=== PATIENT | female | born 1980 | race Caucasian/White ===

== ENCOUNTER → 2017-03-20 17:15 | Outpatient (CLI) | payer OTHER, SELFPAY ==
--- NOTE | 2017-03-20 | IMM_PTH ---
PATIENT: KOLE DAWSON LOC: [facility] U#:[id number] AGE/SX: 44/F ROOM: RE03/20/[address]: Dr. Jose Tanner MD : 1980 BED: DIS: SPEC #: [id number] RECD: 03/24/17 13:08 STATUS: RANJEET REGordon #: [id number] OBINNA: 03/20/17 00:[address]: Jose Tanner DEPT: IMMUNOHISTOCHEMISTRY RECD BY: Taylor Diaz ENTERED: 03/24/17 13:08 SP TYPE: IMMUNO OTHR DR: No Primary Care Phys Tissues: Endocervical Procedures: p16 (initial) KI-67 (add) PHYSICIAN & INSTITUTION [place] [address] SPECIMEN INFORMATION: Tissue Source: [facility] Clinical Info: [facility] Specimen Number: [id number] CPT code: 17773, 32875 METHODOLOGY: Deparaffinized sections of prefer/formalin-fixed tissue or PAP/DQ stained slides are incubated with monoclonal/polyclonal antibodies/oligonucleotide probes. Localization is made via biotin free immunoperoxidase method. Appropriate controls are performed and reacted as expected. Results on target cell population are indicated in the following table: RESULTS: ANTIBODY / CLONE RESULT P16 (E6H4) positive, focal, patchy Ki-67 (30-9) positive, low These tests were developed and their performance characteristics determined by [facility]. They may not have been cleared or approved by the U.S. Food and Drug Administration. The FDA has determined that such clearance or approval is not necessary. INTERPRETATION: ECC: Focal HPV noted. AM:sylvia 03/25/17
--- NOTE | 2017-03-20 15:30 | ECC_PTH ---
PATIENT: KOLE DAWSON LOC: [facility] U#:[id number] AGE/SX: 44/F ROOM: RE03/20/[address]: Dr. Jose Tanner MD : 1980 BED: DIS: SPEC #: [id number] RECD: 03/20/17 16:58 STATUS: GLADYSSharon PALOMARES #: [id number] OBINNA: 03/20/17 15:[address]: Jose Tanner DEPT: SURGICAL PATHOLOGY RECD BY: Taylor Kumar ENTERED: 03/21/17 10:53 SP TYPE: ZACH HOLMAN DR: Tahira Primary Care Phys Tissues: Endocervical Procedures: Surgery Specimen Level IV HEADER OPERATION: Colposcopy PRE-OP DIAGNOSIS: LGSIL pap 02/27/17 TISSUE SUBMITTED: ZACH MICROSCOPIC DIAGNOSIS Endocervix, curettings: Fragments of benign endocervix. Detached squamous epithelial cells with changes consistent with HPV cytopathic effect. AM:sylvia 03/24/17 COMMENT Immunohistochemistry ([id number]) for surrogate HPV marker (p16) will be reported separately. MICROSCOPIC DESCRIPTION Slides are reviewed. GROSS DESCRIPTION Received in fixative is one container labeled with the patient's name and designated ECC. The specimen consists of multiple fragments of hemorrhagic mucoid tissue that in aggregate measure 1.5 x 1.5 x 0.2 cm. The specimen is totally submitted in one cassette. / SJ:rg 03/21/17 TC:5 CPT: 08113
== END ==
PROVIDERS: Visit Provider Obstetrics & Gynecology
DX: R87.612 Low grade squamous intraepithelial lesion on cytologic smear of cervix (LGSIL) (principal)
CPT/HCPCS: 88305; 88341; 88342

== ENCOUNTER → 2018-01-15 15:19 | Outpatient (CLI) | payer OTHER, SELFPAY ==
[2016-10-16 10:53] VITALS: BMI 31.1
[2018-01-15 16:16] LABS: Hematocrit 42.7 % (37-47); Hemoglobin 14.2 g/dl (12.0-15.0); Mean Corp Hgb Conc 33.3 g/gl (32-36); Mean Corpuscular Volume 87.3 fL (81-99); Mean Platelet Vol. 10.4 fl (6.2-12.0); Platelet Count 295 K/mm3 (150-450); RBC Distribution Width CV 13.5 % (11.6-14.6); RBC Distribution Width SD 42.3 fl (35.1-43.9); Red Blood Count 4.89 M/mm3 (4.2-5.4); White Blood Count 7.8 K/mm3 (4.4-11.0)
[2018-01-15 16:17] LABS: Scan Indicated on CBC? Y/N NO
[2018-01-15 16:29] LABS: Free T3 2.8 pg/mL (2.18-3.98); T4 Free Direct 1.04 ng/dL (0.76-1.46); Thyroid Stim Hormone (TSH) 2.14 uIU/mL (0.358-3.74)
[2018-01-20 10:03] LABS: HPV Reflexed? NOT INDICATED
--- OUTSIDE RECORDS SUMMARY | 2018-03-12 21:34 | XMS RPT_ITS ---
:1980 Author Organization [facility] Care Team Providers Name Role Phone Jose Tanner Attending Unavailable Primay Care Physicia, No Primary Care Unavailable SealJose quintana Attending Unavailable Primay Care Physicia, No Primary Care Unavailable SealJose quintana Referring Unavailable SealsJose Attending Unavailable Primay Care Physicia, No Primary Care Unavailable PROBLEMS PROBLEMS DATE TYPE CONDITION / CODE ATTENDING STATUS SOURCE 02/28/2017 Unknown Z12.4 - Jose Tanner Active [place] Encounter for Community screening for Hospital malignant Repository neoplasm of cervix / Z12.4(ICD-10) PROCEDURES PROCEDURES No Procedure Records FoundRESULTS RESULTS CBC-COMPLETE BLOOD CNT Collected: 01/15/2018 Status: F Source: [place] NO DIFF [facility] TYPE CODE TESTS RESULT OUT OF RANGE REFERENCE UNITS LAB L100.1000 4.4-11.0 K/mm3 Normal WBC 7.8 LAB L100.1200 4.2-5.4 M/mm3 Normal RBC 4.89 LAB L100.1300 12.0-15.0 g/dl Normal HGB 14.2 LAB L100.1400 37-47 % Normal HCT 42.7 LAB L100.1500 81-99 fL Normal MCV 87.3 LAB L100.1600 27.0-32.0 pg Normal MCH 29.0 LAB L100.1700 32-36 g/gl Normal MCHC 33.3 LAB L100.1810 11.6-14.6 % Normal RDW CV 13.5 LAB L100.1820 35.1-43.9 fl Normal RDW SD 42.3 LAB L100.1900 150-450 K/mm3 Normal PLT 295 LAB L100.2000 6.2-12.0 fl Normal MPV 10.4 Performed By: #### L100.0500 #### [facility] [address] [place], [place], [id number] FREE T3 Collected: 01/15/2018 Status: F Source: [place] 3:20 PM [facility] REPOSITORY TYPE CODE TESTS RESULT OUT OF RANGE REFERENCE UNITS LAB L501.73714 2.18-3.98 pg/mL Normal FREE T3 2.8 Performed By: #### L501.75710, L501.9520, L506.0400 #### [facility] [address] [place], [place], [address] THYROID STIM HORMONE Collected: 01/15/2018 Status: F Source: [place] (TSH) 3:20 PM [facility] REPOSITORY TYPE CODE TESTS RESULT OUT OF RANGE REFERENCE UNITS LAB L501.9520 0.358-3.74 uIU/mL Normal TSH 2.14 Performed By: #### L501.89684, L501.9520, L506.0400 #### [facility] [address] [place], [address] T4 FREE DIRECT Collected: 01/15/2018 Status: F Source: [place] 3:20 PM [facility] REPOSITORY TYPE CODE TESTS RESULT OUT OF RANGE REFERENCE UNITS LAB L506.0400 0.76-1.46 ng/dL Normal T4 FREE 1.04 DIRECT Performed By: #### L501.95344, L501.9520, L506.0400 #### [facility] [address] [place], [address] PAP I-G W/RFX HRHPV Collected: 01/15/2018 Status: F Source: [place] 3:10 PM [facility] REPOSITORY Order Comment: CYTOLOGY INFORMATION: - CLINICAL INFORMATION: - DATE LMP/MENOPAUSE: 12/18/17 LMP - COLLECTION VIAL: Thin Prep Vial - FUSELAGE FRAMER SOURCE: CERVICAL/ENDOCERVICAL - COLLECTION TECHNIQUE: BRUSH/SPATULA Specimen Comment: [id number] Specimen Comment: Source.............Cervix;Endocervix Specimen Comment: LMP / Prev Treat...OAS=[id number] Specimen Comment: No. of containers..01 ThinPrep Vial TYPE CODE TESTS RESULT OUT OF RANGE REFERENCE UNITS LAB L7400.0800 . Normal DIAGN Comment Result Comment: NEGATIVE FOR INTRAEPITHELIAL LESION AND MALIGNANCY. LAB L7400.0900 . Normal ADEQ Comment Result Comment: Satisfactory for evaluation. Endocervical and/or squamous metaplastic cells (endocervical component) are present. LAB L7400.1400 . Normal PERFORM Comment Result Comment: Teresita Jack, Sales Development Executive (ASCP) LAB L7400.2575 . Normal TEST METHOD Comment Result Comment: This liquid based ThinPrep(R) pap test was screened with the use of an image guided system. LAB L7400.2600 . Normal . COMM LAB L7400.2700 . Normal PAPSMR Comment Result Comment: The Pap smear is a screening test designed to aid in the detection of premalignant and malignant conditions of the uterine cervix. It is not a diagnostic procedure and should not be used as the sole means of detecting cervical cancer. Both false-positive and false-negative reports do occur. LAB L7400.2800 . Normal HPV RFLX Comment Result Comment: The HPV DNA reflex criteria were not met with this specimen result therefore, no HPV testing was performed. Performed at: [address] [id number] [employer] Car Attendant: Barbie Wylie MD, Phone: [phone] Performed By: #### L7400.0350 #### [facility] (refer to report for specific site) refer to report for address and phone number ENDOCER CURETT/BIOPSY Observed: 03/20/2017 Status: F Source: [place] 3:30 PM [facility] REPOSITORY Patient: KOLE BOWEN : 1980 (36/F) Acct Num: [id number] Phys: Jose Tanner MD Unit Num: [id number] Loc: [facility] Specimen: [id number] Received: 03/20/171657 Spec Type: ECC TISSUES TISSUES: Endocervical COMMENT Immunohistochemistry ([id number]) for surrogate HPV marker (p16) will be reported separately. GROSS DESCRIPTION Received in fixative is one container labeled with the patient's name and designated ECC. The specimen consists of multiple fragments of hemorrhagic mucoid tissue that in aggregate measure 1.5 x 1.5 x 0.2 cm. The specimen is totally submitted in one cassette. / SJ:sylvia 03/21/17 TC:5 CPT: 12213 HEADER OPERATION: Colposcopy PRE-OP DIAGNOSIS: LGSIL pap 02/27/17 TISSUE SUBMITTED: ECC MICROSCOPIC DESCRIPTION Slides are reviewed. MICROSCOPIC DIAGNOSIS Endocervix, curettings: Fragments of benign endocervix. Detached squamous epithelial cells with changes consistent with HPV cytopathic effect. AM:sylvia 03/24/17 Signed Suresh Sari 03/25/17 <signature on file> Performed By: #### PEC #### [facility] [place], [address] IMMUNOHISTOCHEMISTRY Observed: 03/20/2017 Status: F Source: [place] 12:00 AM [facility] REPOSITORY Patient: KOLE BOWEN : 1980 (36/F) Acct Num: [id number] Phys: Jose Tanner MD Unit Num: [id number] Loc: [facility] Specimen: [id number] Received: 03/24/171307 Spec Type: IMMUNO TISSUES TISSUES: Endocervical SPECIMEN INFORMATION: Tissue Source: ECC Clinical Info: LGSIL Specimen Number: [id number] CPT code: 06724, 79521 METHODOLOGY: Deparaffinized sections of prefer/formalin-fixed tissue or PAP/DQ stained slides are incubated with monoclonal/polyclonal antibodies/oligonucleotide probes. Localization is made via biotin free immunoperoxidase method. Appropriate controls are performed and reacted as expected. Results on target cell population are indicated in the following table: RESULTS: ANTIBODY / CLONE RESULT P16 (E6H4) positive, focal, patchy Ki-67 (30-9) positive, low These tests were developed and their performance characteristics determined by [facility]. They may not have been cleared or approved by the U.S. Food and Drug Administration. The FDA has determined that such clearance or approval is not necessary. INTERPRETATION: ECC: Focal HPV noted. AM:sylvia 03/25/17 PHYSICIAN AND INSTITUTION [address] [address] Signed Suresh [facility] 03/25/17 <signature on file> Performed By: #### PIMM #### [facility] [address] [place] [address]. [place], [place], [address] PAP I-G W/RFX HRHPV Collected: 02/27/2017 Status: F Source: [place] 3:00 PM [facility] REPOSITORY Order Comment: CYTOLOGY INFORMATION: - CLINICAL INFORMATION: - DATE LMP/MENOPAUSE: 02/09/17 LMP - COLLECTION VIAL: Thin Prep Vial - FUSELAGE FRAMER SOURCE: CERVICAL/ENDOCERVICAL - COLLECTION TECHNIQUE: BRUSH/SPATULA Specimen Comment: [id number] Specimen Comment: No. of containers..01 ThinPrep Vial TYPE CODE TESTS RESULT OUT OF REFERENCE UNITS RANGE LAB L7400.0800 . High DIAGN Comment Result Comment: EPITHELIAL CELL ABNORMALITY. LOW-GRADE SQUAMOUS INTRAEPITHELIAL LESION (LGSIL); MILD DYSPLASIA IS PRESENT. LAB L7400.0900 . Normal ADEQ Comment Result Comment: Satisfactory for evaluation. Endocervical and/or squamous metaplastic cells (endocervical component) are present. LAB L7400.1400 . Normal PERFORM Comment Result Comment: Evy Roberts, Sales Development Executive (ASCP) LAB L7400.1700 . Normal SIGN Comment Result Comment: Kaia Briggs MD, Pathologist LAB L7400.1720 . Normal Path prov. Comment ICD9 Result Comment: R87.612 LAB L7400.2575 . Normal TEST METHOD Comment Result Comment: This liquid based ThinPrep(R) pap test was screened with the use of an image guided system. LAB L7400.2600 . Normal . COMM LAB L7400.2700 . Normal PAPSMR Comment Result Comment: The Pap smear is a screening test designed to aid in the detection of premalignant and malignant conditions of the uterine cervix. It is not a diagnostic procedure and should not be used as the sole means of detecting cervical cancer. Both false-positive and false-negative reports do occur. LAB L7400.2800 . Normal HPV RFLX Comment Result Comment: The HPV DNA reflex criteria were not met with this specimen result therefore, no HPV testing was performed. Performed at: [facility] [place] [id number] [employer] Car Attendant: Kaia Briggs MD, Phone: [phone] Performed at: [facility] [id number] [employer] Car Attendant: Barbie Wylie MD, Phone: [phone] Performed By: #### L7400.0350 #### [facility] (refer to report for specific site) refer to report for address and phone number ALLERGIES ALLERGIES DATE TYPE / CODE NAME / CODE REACTION SEVERITY SOURCE 10/11/2016 Drug No Known Unknown [facility] Allergy/4160 Allergies/F00 [facility] [address](SNOMED 2899005(RXNOR Repository CT) M) ENCOUNTERS ENCOUNTERS ADMIT/DISCHARGE ACCOUNT ADMITTING ENCOUNTER LOCATION SOURCE NUMBER CLASS 01/15/2018 [id number] Ambulatory [place] 3 [facility] ing:WOBLAB Repository 03/20/2017 [id number] Amb[place] [facility] ing:[facility] Repository 02/27/2017 [id number] Ambulatory [place] 2 [facility] ing:LABSPEC Repository PAYERS PAYERS ENCOUNTER GUARANTOR PAYER SUBSCRIBER SOURCE 01/15/2018 Kole Connors Primary Kole [id number] Insurance:MEDICAL BachmannDOB[id number] [address]Npa: Number: Repository [id number] (HP) Date:[id number] [address] [address]VN: 01/15/2018 Secondary NOT GIVENUNK [place] Insurance:SELF PAY [facility] Number: Effective Repository Date:2018-01-15 03/20/2017 Kole L Primary Kole L [place] [id number] Insurance:MEDICAL BachmannDOB: [facility] 3082[facility]81-[facility] [address]Sfi: Number: Repository [phone] [id number] (HP) Date:[id number] [address] [address]XD: 03/20/2017 Secondary NOT GIVENUNK [place] Insurance:SELF PAY [facility] Number: Effective Repository Date:2017-03-20 02/27/2017 Kole L Primary Kole L [place] [id number] Insurance:MEDICAL BachmannDOB: [facility] [id number] [address]Pku: Number: Repository [phone] [id number] (HP) Date:[id number] [address] [address]VC: 02/27/2017 Secondary NOT GIVENUNK [place] Insurance:SELF PAY [facility] Number: Effective Repository Date:2017-02-27
== END ==
PROVIDERS: Visit Provider Obstetrics & Gynecology
DX: R87.612 Low grade squamous intraepithelial lesion on cytologic smear of cervix (LGSIL) (principal); R53.83 Other fatigue
CPT/HCPCS: 36415; 84439; 84443; 84481; 85027; 88175; G0145

== ENCOUNTER → 2018-08-13 09:33 | Outpatient (CLI) | payer OTHER, SELFPAY ==
[2018-08-18 16:54] LABS: HPV HC, High Risk Negative (Negative)
== END ==
PROVIDERS: Visit Provider Obstetrics & Gynecology
DX: Z12.4 Encounter for screening for malignant neoplasm of cervix (principal)
CPT/HCPCS: 87624; 88175; G0145

== ENCOUNTER → 2020-09-18 07:50 | Outpatient (CLI) | payer OTHER, SELFPAY ==
--- NOTE | 2020-09-18 07:57 | MRI_ITS ---
EXAM DESCRIPTION: MRI of the head and internal auditory canals CLINICAL HISTORY: 40 years Female, ASYMETRIC HEARING LOSS, DIZZINESS COMPARISON: None. TECHNIQUE: An MRI was performed utilizing axial diffusion and ADC map images followed by axial T2 and FLAIR and coronal T2-weighted images through the middle cranial fossa followed by sagittal and axial T1 weighted images. Axial Pre and postcontrast T1-weighted images of the posterior fossa were obtained along with postcontrast coronal T1-weighted images along with postcontrast T1-weighted images through the entire head. FINDINGS: The diffusion weighted axial images and ADC map images of the head show no evidence of restricted diffusion. The ramses, medulla and midbrain and cerebellum appear to be normal. The ventricles and sulci are normal in size and shape. The cerebral hemispheres appear to be normal.The basal ganglia appear to be normal. No enhancing masses or lesions are seen. The cerebellar tonsils extend about 5 to 6 mm below the foramen magnum indicative of cerebellar ectopia/CHIARI I malformation.The V4 segments of the vertebral artery, the basilar artery, the posterior cerebral arteries, the cavernous and supraclinoid carotid arteries, and the M1 segments of the middle cerebral arteries are all normal The orbits including the optic nerves and optic chiasm appear normal. The pituitary and pituitary infundibulum appear to be normal. The cisternal segments of the 7th and 8th cranial nerves and the calcaneonavicular portion of the 7th and 8th cranial nerves appear to be normal. The basal turn of cochlea vestibule and semicircular canals appear to be normal. No enhancing masses or lesions are seen. The auditory axis including the ventral and dorsal cochlear nuclei, the trapezoid body, the lateral lemniscus, the inferior colliculus, the medial geniculate body, and the superior temporal gyri (Brodmann area 41,42) are all normal. The inner and outer tables of the skull are normal The frontal, ethmoid, maxillary, and sphenoid sinuses are normal. The mastoid air cells are normal. MRI/Brain W/WO Contrast IMPRESSION: 1. 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 2. Normal MRI of the internal auditory canals and auditory axis. Electronically Signed: Kirby Avitia DO at 10:29 EDT Tel , Service support ,
== END ==
PROVIDERS: Referring Provider Otolaryngology; Visit Provider Otolaryngology
DX: H90.42 Sensorineural hearing loss, unilateral, left ear, with unrestricted hearing on the contralateral side (principal); R42 Dizziness and giddiness
CPT/HCPCS: 70553; A9575